=== PATIENT | male | born 2000 | race African-American/Black ===

== ENCOUNTER 2021-03-22 10:23 | Emergency (ER) | payer BC ==
[2021-03-22] MEDS ORDERED: Dexamethasone 10 MG/ML VIAL ONE (12:55)
[2021-03-22] MEDS ORDERED: cefTRIAXone\\ROCEPHIN 1 GM VIAL ONE (12:56)
[2021-03-22] MEDS ORDERED: Ketorolac Tromethamine 30 MG/ML VIAL ONE (12:56)
== END 2021-03-22 14:17 | disposition home or self-care (01) ==
LOC: CSHERS 10:23
DX: J36 Peritonsillar abscess (principal)
CPT/HCPCS: 96365; 96375; J0696; J1100; J1885